=== PATIENT | male | born 1950 | race Caucasian/White ===

== ENCOUNTER 2020-02-25 10:38 | Observation (INO) | payer MEDICARE, BC ==
[2020-02-25] MEDS ORDERED: HYDROmorphone 2 MG/ML SDV IVPUSH ONE (11:15)
[2020-02-25] MEDS ORDERED: Ondansetron 4 MG/2 ML SDV IVPUSH ONE (11:15)
[2020-02-25] MEDS: Sodium Chloride 0.9% 10 ML Syringe FLUSH PRN ×3 (11:21→19:41)
--- NOTE | 2020-02-25 11:23 | EDM.PDOC ---
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, leaned to far and thinks he inadvertently kicked the ladder out from under him, fell 6', landed on the ladder, no LOC, his boss was in the basement and came up to check on him, lay there for 10 minutes, then was up and walking he drove part way to his daughter's house, who then drove him here no CABRERA, no neck pain, no abd pain, had mid in midsternum and R wrist, L handed has had rib fx's in past, thinks he may have fx'ed a rib no cough, no dyspnea, no tachypnea fully alert and cooperative trauma alert called, I notified Dr Del Cid after doing examining pt including an eFAST u/s that was neg, Dr Del Cid requested to be notified if there is a change in pt's condition, pt currently clinically stable ~1.5h after injury with normal vs pt did reluctantly agree to take pain meds h/o prostate and heart problems PCP in [place], from [facility] not seen at this location previously, no other data in [facility] meds: ASA 81/d, atenolol, lisinopril, prostate med, cholesterol med PMH: states he had a stent x 1 20y ago, no DC, last stress test was awhile ago right wrist, chest, abdomen Pain Score (Numeric/FACES): 5 - Related Data Allergies Allergy/AdvReac Type Severity Reaction Status Date / Time No Known Allergies Allergy Verified 02/25/20 11:00 Past Medical History HEENT History: Reports: Impaired Vision Cardiovascular History: Reports: High Cholesterol, Hypertension, Other (See Below) Other Cardiovascular History: stent placed in 1999 Genitourinary History: Reports: Prostate Disorder Musculoskeletal History: Reports: Fracture, Other (See Below) Other Musculoskeletal History: fractured ribs Psychiatric History: Reports: Depression - Past Surgical History Musculoskeletal Surgical History: Reports: Hip Replacement, Other (See Below) Other Musculoskeletal Surgeries/Procedures:: right hip replacement Social & Family History - Family History Family Medical History: Noncontributory Review of Systems - Review of Systems Review Of Systems: See Below Constitutional: Reports: No Symptoms Eyes: Reports: No Symptoms Ears: Reports: No Symptoms Nose: Reports: No Symptoms Mouth/Throat: Reports: No Symptoms Respiratory: Reports: No Symptoms Cardiovascular: Reports: Chest Pain GI/Abdominal: Reports: No Symptoms. Denies: Abdominal Pain Genitourinary: Reports: No Symptoms Musculoskeletal: Reports: No Symptoms Skin: Reports: No Symptoms Neurological: Reports: No Symptoms Psychiatric: Reports: No Symptoms ED EXAM, GENERAL - Physical Exam Exam: See Below Exam Limited By: No Limitations General Appearance: Alert, WD/WN, No Apparent Distress, Other (good eye contact, GCS 15, normal speech, cognition intact, no dyspnea) Eye Exam: Bilateral Eye: EOMI, PERRL Ears: Normal Canal, Hearing Grossly Normal Neck: Normal Inspection, Supple, Non-Tender, Full Range of Motion. No: Lymphadenopathy (R), Lymphadenopathy (L) Respiratory/Chest: Other (abrasion in mid sternum of ~ 10 x 10 cm, superficial, no lac, no bleeding, no ecchymosis, no splinting, 1-2+ tender at lower 1/2 of sternum and R lower hemithorax, 1+ tender at L lower hemithorax, no cough, no accessory muscles, symmetric BS a little more prominent on L, no visible pneumo on u/s) Cardiovascular: Normal Peripheral Pulses, Regular Rate, Rhythm, No Edema, No Gallop, No JVD, No Murmur, No Rub GI/Abdominal: Normal Bowel Sounds, Soft, Other (abraion ~5 x 5 cm at RUQ in MCL, superficial, no lac, no bleeding, prominent abd c/w inc'd adipose tissue, no definite tenderness) Extremities: No Pedal Edema, Other (R wrist with skin intact, no swell, no def ormity, ) Neurological: Alert, Oriented, CN II-XII Intact, Normal Cognition, No Motor/Sensory Deficits Psychiatric: Normal Affect, Normal Mood Skin Exam: Warm, Dry, Intact, Normal Color, No Rash Lymphatic: No Adenopathy Course - Vital Signs Last Recorded V/S: Last Vital Signs Temp 37.1 C 02/25/20 10:40 Pulse 57 L 02/25/20 11:06 Resp 14 02/25/20 11:06 BP 164/82 H 02/25/20 11:06 Pulse Ox 99 02/25/20 11:06 - Orders/Labs/Meds Orders: Active Orders 24 hr Category Date Time Status EKG Documentation Completion [RC] ASDIRECTED Care 02/25/20 11:17 Ordered Chest Abdomen Pelvis w Cont [CT] Stat Exams 02/25/20 11:09 Ordered Wrist Comp Min 3V Rt [CR] Stat Exams 02/25/20 11:11 Ordered Sodium Chloride 0.9% [Normal Saline] 1,000 ml Med 02/25/20 11:30 Active IV ASDIRECTED Sodium Chloride 0.9% [Saline Flush] Med 02/25/20 11:21 Active 10 ml FLUSH ASDIRECTED PRN EKG 12 Lead [EK] Routine Ther 02/25/20 11:16 Ordered Medication Orders Sodium Chloride (Normal Saline) 1,000 mls @ 999 mls/hr IV ASDIRECTED BULL Last Admin: 02/25/20 11:28 Dose: 999 mls/hr Documented by: JULISSA Sodium Chloride (Saline Flush) 10 ml FLUSH ASDIRECTED PRN PRN Reason: Keep Vein Open Last Admin: 02/25/20 11:21 Dose: 10 ml Documented by: JULISSA Labs: Laboratory Tests 02/25/20 02/25/20 02/25/20 Range/Units 11:40 11:40 11:40 WBC 6.8 (4.5-12.0) X10-3/uL RBC 4.39 (4.30-5.75) x10(6)uL Hgb 13.2 L (13.5-17.8) g/dL Hct 39.6 (30.0-51.3) % MCV 90.2 (80-96) fL MCH 30.1 (27.7-33.6) pg MCHC 33.4 (32.2-35.4) g/dL RDW 13.7 (11.5-15.5) % Plt Count 150 (125-369) X10(3)uL MPV 7.1 L (7.4-10.4) fL Neut % (Auto) 81.1 (46-82) % Lymph % (Auto) 10.0 L (13-37) % [place] % (Auto) 7.5 (4-12) % Eos % (Auto) 0 L (1.0-5.0) % Baso % (Auto) 1 (0-2) % Neut # (Auto) 5.4 (1.6-8.3) # Lymph # (Auto) 0.7 (0.6-5.0) # [place] # (Auto) 0.5 (0.0-1.3) # Eos # (Auto) 0.0 (0.0-0.8) # Baso # (Auto) 0.1 (0.0-0.2) # PT (9.0-11.1) sec INR (1.00-1.24) Sodium 139 (135-145) mmol/L Potassium 4.3 (3.5-5.3) mmol/L Chloride 107 (100-110) mmol/L Carbon Dioxide 26 (21-32) mmol/L BUN 16 (7-18) mg/dL Creatinine 1.2 (0.70-1.30) mg/dL Est Cr Clr Drug Dosing TNP Estimated GFR (MDRD) > 60 (>60) BUN/Creatinine Ratio 13.3 (9-20) Glucose 107 (80-116) mg/dL Calcium 8.6 (8.6-10.2) mg/dL Total Bilirubin 0.8 (0.1-1.3) mg/dL AST 38 H (5-25) IU/L ALT 35 (12-36) U/L Alkaline Phosphatase 78 (56-112) IU/L Troponin I 5.7 (4.0-60.3) pg/mL Total Protein 6.3 (6.0-8.0) g/dL Albumin 3.5 (3.2-4.6) g/dL Globulin 2.8 g/dL Albumin/Globulin Ratio 1.3 Urine Color (YELLOW) Urine Appearance (CLEAR) Urine pH (5.0-6.5) Ur Specific [place] (1.010-1.025) Urine Protein (NEGATIVE) mg/dL Urine Glucose (UA) (NORMAL) mg/dL Urine Ketones (NEGATIVE) mg/dL Urine Occult Blood (NEGATIVE) Urine Nitrite (NEGATIVE) Urine Bilirubin (NEGATIVE) Urine Urobilinogen (NEGATIVE) mg/dL Ur Leukocyte Esterase (NEGATIVE) Urine RBC (0-5) Urine WBC (0-5) Ur Squamous Epith Cells (NS,R,O) Urine Bacteria (NS) Fine Granular Casts (NS) 02/25/20 02/25/20 Range/Units 11:40 12:56 WBC (4.5-12.0) X10-3/uL RBC (4.30-5.75) x10(6)uL Hgb (13.5-17.8) g/dL Hct (30.0-51.3) % MCV (80-96) fL MCH (27.7-33.6) pg MCHC (32.2-35.4) g/dL RDW (11.5-15.5) % Plt Count (125-369) X10(3)uL MPV (7.4-10.4) fL Neut % (Auto) (46-82) % Lymph % (Auto) (13-37) % [place] % (Auto) (4-12) % Eos % (Auto) (1.0-5.0) % Baso % (Auto) (0-2) % Neut # (Auto) (1.6-8.3) # Lymph # (Auto) (0.6-5.0) # [place] # (Auto) (0.0-1.3) # Eos # (Auto) (0.0-0.8) # Baso # (Auto) (0.0-0.2) # PT 13.0 H (9.0-11.1) sec INR 1.22 (1.00-1.24) Sodium (135-145) mmol/L Potassium (3.5-5.3) mmol/L Chloride (100-110) mmol/L Carbon Dioxide (21-32) mmol/L BUN (7-18) mg/dL Creatinine (0.70-1.30) mg/dL Est Cr Clr Drug Dosing Estimated GFR (MDRD) (>60) BUN/Creatinine Ratio (9-20) Glucose (80-116) mg/dL Calcium (8.6-10.2) mg/dL Total Bilirubin (0.1-1.3) mg/dL AST (5-25) IU/L ALT (12-36) U/L Alkaline Phosphatase (56-112) IU/L Troponin I (4.0-60.3) pg/mL Total Protein (6.0-8.0) g/dL Albumin (3.2-4.6) g/dL Globulin g/dL Albumin/Globulin Ratio Urine Color Yellow (YELLOW) Urine Appearance Clear (CLEAR) Urine pH 5.0 (5.0-6.5) Ur Specific [place] 1.010 (1.010-1.025) Urine Protein Negative (NEGATIVE) mg/dL Urine Glucose (UA) Normal (NORMAL) mg/dL Urine Ketones Negative (NEGATIVE) mg/dL Urine Occult Blood Moderate H (NEGATIVE) Urine Nitrite Negative (NEGATIVE) Urine Bilirubin Negative (NEGATIVE) Urine Urobilinogen Normal (NEGATIVE) mg/dL Ur Leukocyte Esterase Negative (NEGATIVE) Urine RBC 20-30 H (0-5) Urine WBC 0-5 (0-5) Ur Squamous Epith Cells Moderate H (NS,R,O) Urine Bacteria Few H (NS) Fine Granular Casts Few H (NS) Meds: Medications Generic Name Dose Route Start Last Admin Trade Name Freq PRN Reason Stop Dose Admin Sodium Chloride 1,000 mls @ 999 mls/hr 02/25/20 11:30 02/25/20 11:28 Normal Saline IV 999 mls/hr ASDIRECTED BULL Administration Sodium Chloride 10 ml 02/25/20 11:21 02/25/20 11:21 Saline Flush FLUSH 10 ml ASDIRECTED PRN Administration Keep Vein Open Discontinued Medications Generic Name Dose Route Start Last Admin Trade Name Freq PRN Reason Stop Dose Admin Hydromorphone HCl 1 mg 02/25/20 11:15 02/25/20 11:24 Dilaudid IVPUSH 02/25/20 11:16 1 mg ONETIME ONE Administration Ondansetron HCl 4 mg 02/25/20 11:15 02/25/20 11:20 Zofran IVPUSH 02/25/20 11:16 4 mg ONETIME ONE Administration - Re-Assessments/Exams Free Text/Narrative Re-Assessment/Exam: 02/25/20 13:48 d/w radiologist, there is a Grade 1 splenic rupture, no rib fx's d/w Dr Del Cid, surgeon, who agreed that overnight observation was reasonable given mild anemia (hgb 13.5, no comparison), elevated INR (INR 1.22), chest contusion in pt with h/o cardiac stent, and splenic rupture vss here 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 as well as for additional signs of hemorrhage d/w Dr Mckenna, hospitalist, who accepted pt in admission there is a nondisplaced fx of the distal R radius that involves ~15% of the articular service, appears it should heal with a splint, short arm splint applied with stockinet, webroll, padded fiberglass and Junior wraps x 2 (3" and 2"), pt states he will f/u with [facility], images pushed to [facility] 02/25/20 13:52 Departure - Departure Time of Disposition: 13:45 Disposition: Refer to Observation Condition: Good Clinical Impression: Chest wall contusion, Chest abrasion, Splenic rupture, Normochromic normocytic anemia, Elevated INR, Hx of heart artery stent, Fall, Fracture of right distal radius - Discharge Information *PRESCRIPTION DRUG MONITORING PROGRAM REVIEWED*: Not Applicable *COPY OF PRESCRIPTION DRUG MONITORING REPORT IN PATIENT RONAK: Not Applicable Referrals: Kathleen Degroot MD [Primary Care Provider] - Forms: ED Department Discharge Sepsis Event Note (ED) - Evaluation Sepsis Screening Result: No Definite Risk - Focused Exam Vital Signs: Vital Signs Temp Pulse Resp BP Pulse Ox 02/25/20 11:06 57 L 14 164/82 H 99 02/25/20 10:40 37.1 C 57 L 12 157/87 H - My Orders Last 24 Hours: My Active Orders 02/25/20 11:09 Chest Abdomen Pelvis w Cont [CT] Stat 02/25/20 11:11 Wrist Comp Min 3V Rt [CR] Stat 02/25/20 11:16 EKG 12 Lead [EK] Routine 02/25/20 11:17 EKG Documentation Completion [RC] ASDIRECTED 02/25/20 11:21 Sodium Chloride 0.9% [Saline Flush] 10 ml FLUSH ASDIRECTED PRN 02/25/20 11:30 Sodium Chloride 0.9% [Normal Saline] 1,000 ml IV ASDIRECTED - Assessment/Plan Last 24 Hours: My Active Orders 02/25/20 11:09 Chest Abdomen Pelvis w Cont [CT] Stat 02/25/20 11:11 Wrist Comp Min 3V Rt [CR] Stat 02/25/20 11:16 EKG 12 Lead [EK] Routine 02/25/20 11:17 EKG Documentation Completion [RC] ASDIRECTED 02/25/20 11:21 Sodium Chloride 0.9% [Saline Flush] 10 ml FLUSH ASDIRECTED PRN 02/25/20 11:30 Sodium Chloride 0.9% [Normal Saline] 1,000 ml IV ASDIRECTED
[2020-02-25] MEDS ORDERED: Sodium Chloride 0.9% 1,000 ML IV SCH (11:30)
--- NOTE | 2020-02-25 14:28 | PCM.HP.2 ---
H&P History of Present Illness - General Date of Service: 02/25/20 Admit Problem/Dx: Grade 1 splenic rupture, Right distal radial fracture, fall from ladder, chest abrasion with contusion Source of Information: Patient, EMS Notes Reviewed, Provider - History of Present Illness Initial Comments - Free Text/Narative: Arun was working today on ladder, reached forward and ladder went out from underneath him, fell 6 feet, landed on either ladder or some bricks that were under the ladder, did not lose consciousness, had reached out with his right hand to catch himself. His boss found him about 10 min after injury, went home and daughter brought him to ER. Had trauma CT, found to have grade 1 splenic fracture, right distal radial fracture, chest contusion, chest abrasion, hemoglobin 13.2, INR is within normal range for our lab. History of CAD with stent x 1 placed in 1999, on Atenolol 50 mg, Lisinopril 10 mg, Aspirin 81 mg, Atorvastatin 40 mg, Terazosin 5 mg, Fish oil supplement and was started on new depression medication, but doesn't remember name. His daughter is bringing his medications in from home. He states he is sore, no abdominal pain, fevers, chills, sore throat, cough, shortness of breath, nausea, vomiting, diarrhea. No trouble urinating. Having some numbness in right thumb, splint starting to feel tight. No injuries to his legs. His regular doctor is at [facility] in [facility]. Took all his medications this morning. right wrist, chest, abdomen Pain Score (Numeric/FACES): 5 - Related Data Allergies/Adverse Reactions: Allergies Allergy/AdvReac Type Severity Reaction Status Date / Time No Known Allergies Allergy Verified 02/25/20 11:00 Past Medical History HEENT History: Reports: Impaired Vision Cardiovascular History: Reports: High Cholesterol, Hypertension, Other (See Below) Other Cardiovascular History: stent placed in 1999 Genitourinary History: Reports: Prostate Disorder Musculoskeletal History: Reports: Fracture, Other (See Below) Other Musculoskeletal History: fractured ribs Psychiatric History: Reports: Depression - Past Surgical History Musculoskeletal Surgical History: Reports: Hip Replacement, Other (See Below) Other Musculoskeletal Surgeries/Procedures:: right hip replacement Social & Family History - Family History Family Medical History: Noncontributory - Tobacco Use Smoking Status *Q: Former Smoker Used Tobacco, but Quit: Yes Month/Year Tobacco Last Used: 07/2009 - Caffeine Use Caffeine Use: Reports: Coffee - Alcohol Use Days Per Week of Alcohol Use: 7 Number of Drinks Per Day: 3 Total Drinks Per Week: 21 - Recreational Drug Use Recreational Drug Use: No H&P Review of Systems - Review of Systems: Review Of Systems: Comprehensive ROS is negative, except as noted in HPI. Exam - Exam Exam: See Below - Vital Signs Vital Signs: Last Vital Signs Temp 98.7 F 02/25/20 10:40 Pulse 57 L 02/25/20 11:06 Resp 14 02/25/20 11:06 BP 164/82 H 02/25/20 11:06 Pulse Ox 99 02/25/20 11:06 Weight: 175 lb - Exam General: Alert, Oriented, Cooperative. No: Mild Distress HEENT: PERRLA, Conjunctiva Clear, Hearing Intact, Mucosa Moist & [place], TMs Clear, Glasses Neck: Supple, Trachea Midline Lungs: Clear to Auscultation, Normal Respiratory Effort, Decreased Breath Sounds (bibasilar) Cardiovascular: Regular Rate, Regular Rhythm GI/Abdominal Exam: Normal Bowel Sounds, Soft, Non-Tender, No Distention. No: Guarding, Rigid, Rebound (Male) Exam: Deferred Rectal (Males) Exam: Deferred Back Exam: No: CVA Tenderness (R), CVA Tenderness (L) Extremities: No Pedal Edema. No: Joint Swelling, Leg Pain, Increased Warmth, Redness Peripheral Pulses: 2+: Radial (L), Posterior Tibial (L), Posterior Tibial (R), Dorsalis Pedis (L), Dorsalis Pedis (R) Skin: Warm, Dry, Other (Abrasion to sternum 5 cm x 3 cm, epigastric 3 cm) Neurological: Cranial Nerves Intact, Normal Speech Psychiatric: Normal Affect, Normal Mood - Patient Data Lab Results Last 24 hrs: Laboratory Results - last 24 hr 02/25/20 02/25/20 02/25/20 Range/Units 11:40 11:40 11:40 WBC 6.8 (4.5-12.0) X10-3/uL RBC 4.39 (4.30-5.75) x10(6)uL Hgb 13.2 L (13.5-17.8) g/dL Hct 39.6 (30.0-51.3) % MCV 90.2 (80-96) fL MCH 30.1 (27.7-33.6) pg MCHC 33.4 (32.2-35.4) g/dL RDW 13.7 (11.5-15.5) % Plt Count 150 (125-369) X10(3)uL MPV 7.1 L (7.4-10.4) fL Neut % (Auto) 81.1 (46-82) % Lymph % (Auto) 10.0 L (13-37) % [place] % (Auto) 7.5 (4-12) % Eos % (Auto) 0 L (1.0-5.0) % Baso % (Auto) 1 (0-2) % Neut # (Auto) 5.4 (1.6-8.3) # Lymph # (Auto) 0.7 (0.6-5.0) # [place] # (Auto) 0.5 (0.0-1.3) # Eos # (Auto) 0.0 (0.0-0.8) # Baso # (Auto) 0.1 (0.0-0.2) # PT (9.0-11.1) sec INR (1.00-1.24) Sodium 139 (135-145) mmol/L Potassium 4.3 (3.5-5.3) mmol/L Chloride 107 (100-110) mmol/L Carbon Dioxide 26 (21-32) mmol/L BUN 16 (7-18) mg/dL Creatinine 1.2 (0.70-1.30) mg/dL Est Cr Clr Drug Dosing TNP Estimated GFR (MDRD) > 60 (>60) BUN/Creatinine Ratio 13.3 (9-20) Glucose 107 (80-116) mg/dL Calcium 8.6 (8.6-10.2) mg/dL Total Bilirubin 0.8 (0.1-1.3) mg/dL AST 38 H (5-25) IU/L ALT 35 (12-36) U/L Alkaline Phosphatase 78 (56-112) IU/L Troponin I 5.7 (4.0-60.3) pg/mL Total Protein 6.3 (6.0-8.0) g/dL Albumin 3.5 (3.2-4.6) g/dL Globulin 2.8 g/dL Albumin/Globulin Ratio 1.3 Urine Color (YELLOW) Urine Appearance (CLEAR) Urine pH (5.0-6.5) Ur Specific [place] (1.010-1.025) Urine Protein (NEGATIVE) mg/dL Urine Glucose (UA) (NORMAL) mg/dL Urine Ketones (NEGATIVE) mg/dL Urine Occult Blood (NEGATIVE) Urine Nitrite (NEGATIVE) Urine Bilirubin (NEGATIVE) Urine Urobilinogen (NEGATIVE) mg/dL Ur Leukocyte Esterase (NEGATIVE) Urine RBC (0-5) Urine WBC (0-5) Ur Squamous Epith Cells (NS,R,O) Urine Bacteria (NS) Fine Granular Casts (NS) 02/25/20 02/25/20 Range/Units 11:40 12:56 WBC (4.5-12.0) X10-3/uL RBC (4.30-5.75) x10(6)uL Hgb (13.5-17.8) g/dL Hct (30.0-51.3) % MCV (80-96) fL MCH (27.7-33.6) pg MCHC (32.2-35.4) g/dL RDW (11.5-15.5) % Plt Count (125-369) X10(3)uL MPV (7.4-10.4) fL Neut % (Auto) (46-82) % Lymph % (Auto) (13-37) % [place] % (Auto) (4-12) % Eos % (Auto) (1.0-5.0) % Baso % (Auto) (0-2) % Neut # (Auto) (1.6-8.3) # Lymph # (Auto) (0.6-5.0) # [place] # (Auto) (0.0-1.3) # Eos # (Auto) (0.0-0.8) # Baso # (Auto) (0.0-0.2) # PT 13.0 H (9.0-11.1) sec INR 1.22 (1.00-1.24) Sodium (135-145) mmol/L Potassium (3.5-5.3) mmol/L Chloride (100-110) mmol/L Carbon Dioxide (21-32) mmol/L BUN (7-18) mg/dL Creatinine (0.70-1.30) mg/dL Est Cr Clr Drug Dosing Estimated GFR (MDRD) (>60) BUN/Creatinine Ratio (9-20) Glucose (80-116) mg/dL Calcium (8.6-10.2) mg/dL Total Bilirubin (0.1-1.3) mg/dL AST (5-25) IU/L ALT (12-36) U/L Alkaline Phosphatase (56-112) IU/L Troponin I (4.0-60.3) pg/mL Total Protein (6.0-8.0) g/dL Albumin (3.2-4.6) g/dL Globulin g/dL Albumin/Globulin Ratio Urine Color Yellow (YELLOW) Urine Appearance Clear (CLEAR) Urine pH 5.0 (5.0-6.5) Ur Specific [place] 1.010 (1.010-1.025) Urine Protein Negative (NEGATIVE) mg/dL Urine Glucose (UA) Normal (NORMAL) mg/dL Urine Ketones Negative (NEGATIVE) mg/dL Urine Occult Blood Moderate H (NEGATIVE) Urine Nitrite Negative (NEGATIVE) Urine Bilirubin Negative (NEGATIVE) Urine Urobilinogen Normal (NEGATIVE) mg/dL Ur Leukocyte Esterase Negative (NEGATIVE) Urine RBC 20-30 H (0-5) Urine WBC 0-5 (0-5) Ur Squamous Epith Cells Moderate H (NS,R,O) Urine Bacteria Few H (NS) Fine Granular Casts Few H (NS) Result Diagrams: 02/25/20 11:40 02/25/20 11:40 Sepsis Event Note - Evaluation Sepsis Screening Result: No Definite Risk - Focused Exam Vital Signs: Vital Signs Temp Pulse Resp BP Pulse Ox 02/25/20 11:06 57 L 14 164/82 H 99 02/25/20 10:40 98.7 F 57 L 12 157/87 H Date Exam was Performed: 02/25/20 Time Exam was Performed: 14:50 *Q Meaningful Use (ADM) - VTE *Q VTE Pharmacological Contraindications *Q: Active Hemorrhage - VTE Risk Assess *Q Each Risk Factor Represents 2 Points: Age 60 - 74 Years Total Score 2 Point Risk Factors: 2 - Problem List (1) Splenic rupture SNOMED Code(s): 579994189 ICD Code: S36.09XA - OTHER INJURY OF SPLEEN, INITIAL ENCOUNTER Status: Acute Current Visit: Yes Onset Date: ~02/25/20 Problem Details: Grade 1, Dr Del Cid was consulted by ER, advised observation. Will consult if needed. (2) Normochromic normocytic anemia SNOMED Code(s): 88830181 ICD Code: D64.9 - ANEMIA, UNSPECIFIED Status: Acute Current Visit: Yes (3) Fracture of right distal radius SNOMED Code(s): 669295746 ICD Code: S52.501A - UNSP FRACTURE OF THE LOWER END OF RIGHT RADIUS, INIT Status: Acute Current Visit: Yes Onset Date: ~02/25/20 Qualifiers: Encounter type: initial encounter Fracture type: closed (4) Fall SNOMED Code(s): 8856292, 104486747 ICD Code: W19.XXXA - UNSPECIFIED FALL, INITIAL ENCOUNTER Status: Acute Current Visit: Yes Onset Date: ~02/25/20 (5) Chest abrasion SNOMED Code(s): 896858867 ICD Code: S20.319A - ABRASION OF UNSPECIFIED FRONT WALL OF THORAX, INIT ENCNTR Status: Acute Current Visit: Yes Onset Date: ~02/25/20 (6) Chest wall contusion SNOMED Code(s): 42223138 ICD Code: S20.219A - CONTUSION OF UNSPECIFIED FRONT WALL OF THORAX, INIT ENCNTR Status: Acute Current Visit: Yes Onset Date: ~02/25/20 (7) Hx of heart artery stent SNOMED Code(s): 558057793, 873533404 ICD Code: Z95.5 - PRESENCE OF CORONARY ANGIOPLASTY IMPLANT AND GRAFT Status: Chronic Current Visit: Yes Onset Date: ~1999 (8) Elevated INR SNOMED Code(s): 283108122 ICD Code: R79.1 - ABNORMAL COAGULATION PROFILE Status: Ruled-out Current Visit: Yes Problem List Initiated/Reviewed/Updated: Yes Orders Last 24hrs: Active Orders 24 hr Category Date Time Status EKG Documentation Completion [RC] ASDIRECTED Care 02/25/20 11:17 Active Chest Abdomen Pelvis w Cont [CT] Stat Exams 02/25/20 11:09 Taken Wrist Comp Min 3V Rt [CR] Stat Exams 02/25/20 11:11 Taken Sodium Chloride 0.9% [Normal Saline] 1,000 ml Med 02/25/20 11:30 Active IV ASDIRECTED Sodium Chloride 0.9% [Saline Flush] Med 02/25/20 11:21 Active 10 ml FLUSH ASDIRECTED PRN EKG 12 Lead [EK] Routine Ther 02/25/20 11:16 Ordered Medication Orders Sodium Chloride (Normal Saline) 1,000 mls @ 999 mls/hr IV ASDIRECTED BULL Last Admin: 02/25/20 11:28 Dose: 999 mls/hr Documented by: JULISSA Sodium Chloride (Saline Flush) 10 ml FLUSH ASDIRECTED PRN PRN Reason: Keep Vein Open Last Admin: 02/25/20 11:21 Dose: 10 ml Documented by: JULISSA Assessment/Plan Comment:: 1. Admit for observation for grade 1 splenic rupture, right distal radial fracture, chest contusion, Mild anemia. 2. Cardiac monitoring, repeat CBC & BMP in am. 3. INR is within our lab range, no alcohol use. 4. Tylenol, Hydrocodone/APAP and Morphine as needed mild, moderate & severe pain. 5. Zofran as needed nausea. 6. Regular diet. 7. DVT prophylaxis: TEDs BLE, pharmacologic contraindicated due to splenic rupture. 8. FULL CODE. 9. Will adjust treatments as needed. - Mortality Measure Prognosis:: Good
[2020-02-25] MEDS ORDERED: Ondansetron 4 MG Tab.DIS PO PRN (14:45)
[2020-02-25] MEDS ORDERED: Ibuprofen 200 MG Tab PO SCH (15:00)
[2020-02-25] MEDS: Acetaminophen 500 MG Tab PO SCH ×2 (15:21→22:28)
[2020-02-25] MEDS: Acetaminophen/HYDROcodone 325-5 MG Tab PO PRN ×3 (15:21→23:35)
[2020-02-25] MEDS: Morphine 2 MG/ML SYRINGE IVPUSH PRN ×3 (15:24→22:36)
[2020-02-25] MEDS ORDERED: Iopamidol 755 Mg/ML 100 ML Bottle IV ONE (20:06)
--- NOTE | 2020-02-25 21:27 | PCM.SN.2 ---
- Free Text/Narrative Note: hgb down 0.8 points after 1 liter NS repeat EKG neg 2nd trop neg CK inc'd 2.5x ULN, will give additional fluids may need additional imaging if hgb continues to drop, repeat CBC scheduled in AM
[2020-02-25] MEDS: Dextrose 5%-0.45% NaCl 1,000 ML IV SCH (21:51)
[2020-02-26] MEDS: Acetaminophen/HYDROcodone 325-5 MG Tab PO PRN ×4 (03:43→20:23)
[2020-02-26] MEDS: Acetaminophen 500 MG Tab PO SCH ×2 (03:43→08:56)
[2020-02-26] MEDS: Docusate Sodium 100 MG Cap PO PRN ×2 (03:47→20:23)
[2020-02-26] MEDS: Morphine 2 MG/ML SYRINGE IVPUSH PRN ×3 (04:05→15:10)
[2020-02-26] MEDS: Dextrose 5%-0.45% NaCl 1,000 ML IV SCH (05:48)
[2020-02-26] MEDS: Polyethylene Glycol 3350 Powder 17 GM Packet PO PRN (08:52)
[2020-02-26] MEDS: Sodium Chloride 0.9% 10 ML Syringe FLUSH PRN ×3 (10:00→15:21)
[2020-02-26] MEDS ORDERED: Iopamidol 755 Mg/ML 100 ML Bottle IV ONE (13:41)
--- NOTE | 2020-02-26 13:51 | PCM.PN ---
- General Info Date of Service: 02/26/20 Subjective Update: Arun had worsening pain overnight, see Dr Buck note, has been requiring Morphine & [place] 1 tab to control pain every 4 hours. No fevers. Feels sore this morning. EKG and troponin negative but CPK was elevated at 413, repeated at noon at 341. IVF were started last night due to the elevated CPK, he tolerated his breakfast and dinner without worsening of symptoms. Having sharp pain in his RLQ, worse when he stands up. Functional Status: Reports: Pain Controlled, Tolerating Diet, Ambulating, Urinating, New Symptoms - Patient Data Vitals - Most Recent: Last Vital Signs Temp 98.1 F 02/26/20 07:30 Pulse 62 02/26/20 07:30 Resp 18 02/26/20 07:30 BP 151/77 H 02/26/20 07:30 Pulse Ox 94 L 02/26/20 07:30 Weight - Most Recent: 175 lb I&O - Last 24 Hours: Intake & Output 02/25/20 02/26/20 02/26/20 22:59 06:59 14:59 Intake Total 500 Balance 500 Lab Results Last 24 Hours: Laboratory Results - last 24 hr 02/25/20 02/25/20 02/25/20 Range/Units 20:10 20:10 20:10 WBC 5.8 (4.5-12.0) X10-3/uL RBC 4.04 L (4.30-5.75) x10(6)uL Hgb 12.4 L (13.5-17.8) g/dL Hct 36.5 (30.0-51.3) % MCV 90.2 (80-96) fL MCH 30.6 (27.7-33.6) pg MCHC 33.9 (32.2-35.4) g/dL RDW 13.8 (11.5-15.5) % Plt Count 157 (125-369) X10(3)uL Sodium (135-145) mmol/L Potassium (3.5-5.3) mmol/L Chloride (100-110) mmol/L Carbon Dioxide (21-32) mmol/L BUN (7-18) mg/dL Creatinine (0.70-1.30) mg/dL Est Cr Clr Drug Dosing mL/min Estimated GFR (MDRD) (>60) BUN/Creatinine Ratio (9-20) Glucose (80-116) mg/dL Calcium (8.6-10.2) mg/dL Creatine Kinase 413 H* (60-160) IU/L Troponin I 6.0 (4.0-60.3) pg/mL Urine Color (YELLOW) Urine Appearance (CLEAR) Urine pH (5.0-6.5) Ur Specific [place] (1.010-1.025) Urine Protein (NEGATIVE) mg/dL Urine Glucose (UA) (NORMAL) mg/dL Urine Ketones (NEGATIVE) mg/dL Urine Occult Blood (NEGATIVE) Urine Nitrite (NEGATIVE) Urine Bilirubin (NEGATIVE) Urine Urobilinogen (NEGATIVE) mg/dL Ur Leukocyte Esterase (NEGATIVE) Urine RBC (0-5) Urine WBC (0-5) Ur Squamous Epith Cells (NS,R,O) Urine Bacteria (NS) 02/26/20 02/26/20 02/26/20 Range/Units 06:45 06:45 07:50 WBC 5.5 (4.5-12.0) X10-3/uL RBC 3.94 L (4.30-5.75) x10(6)uL Hgb 11.9 L (13.5-17.8) g/dL Hct 35.9 (30.0-51.3) % MCV 91.1 (80-96) fL MCH 30.2 (27.7-33.6) pg MCHC 33.1 (32.2-35.4) g/dL RDW 13.5 (11.5-15.5) % Plt Count 131 (125-369) X10(3)uL Sodium 136 (135-145) mmol/L Potassium 4.0 (3.5-5.3) mmol/L Chloride 102 D (100-110) mmol/L Carbon Dioxide 27 (21-32) mmol/L BUN 12 (7-18) mg/dL Creatinine 1.1 (0.70-1.30) mg/dL Est Cr Clr Drug Dosing 63.05 mL/min Estimated GFR (MDRD) > 60 (>60) BUN/Creatinine Ratio 10.9 (9-20) Glucose 126 H (80-116) mg/dL Calcium 7.8 L (8.6-10.2) mg/dL Creatine Kinase (60-160) IU/L Troponin I (4.0-60.3) pg/mL Urine Color Yellow (YELLOW) Urine Appearance Clear (CLEAR) Urine pH 5.0 (5.0-6.5) Ur Specific [place] 1.020 (1.010-1.025) Urine Protein Negative (NEGATIVE) mg/dL Urine Glucose (UA) Normal (NORMAL) mg/dL Urine Ketones Negative (NEGATIVE) mg/dL Urine Occult Blood Negative (NEGATIVE) Urine Nitrite Negative (NEGATIVE) Urine Bilirubin Negative (NEGATIVE) Urine Urobilinogen Normal (NEGATIVE) mg/dL Ur Leukocyte Esterase Negative (NEGATIVE) Urine RBC 10-20 H (0-5) Urine WBC 0-5 (0-5) Ur Squamous Epith Cells Few H (NS,R,O) Urine Bacteria Few H (NS) 02/26/20 02/26/20 Range/Units 12:05 12:05 WBC (4.5-12.0) X10-3/uL RBC (4.30-5.75) x10(6)uL Hgb 12.8 L (13.5-17.8) g/dL Hct 38.4 (30.0-51.3) % MCV (80-96) fL MCH (27.7-33.6) pg MCHC (32.2-35.4) g/dL RDW (11.5-15.5) % Plt Count (125-369) X10(3)uL Sodium (135-145) mmol/L Potassium (3.5-5.3) mmol/L Chloride (100-110) mmol/L Carbon Dioxide (21-32) mmol/L BUN (7-18) mg/dL Creatinine (0.70-1.30) mg/dL Est Cr Clr Drug Dosing mL/min Estimated GFR (MDRD) (>60) BUN/Creatinine Ratio (9-20) Glucose (80-116) mg/dL Calcium (8.6-10.2) mg/dL Creatine Kinase 341 H* (60-160) IU/L Troponin I (4.0-60.3) pg/mL Urine Color (YELLOW) Urine Appearance (CLEAR) Urine pH (5.0-6.5) Ur Specific [place] (1.010-1.025) Urine Protein (NEGATIVE) mg/dL Urine Glucose (UA) (NORMAL) mg/dL Urine Ketones (NEGATIVE) mg/dL Urine Occult Blood (NEGATIVE) Urine Nitrite (NEGATIVE) Urine Bilirubin (NEGATIVE) Urine Urobilinogen (NEGATIVE) mg/dL Ur Leukocyte Esterase (NEGATIVE) Urine RBC (0-5) Urine WBC (0-5) Ur Squamous Epith Cells (NS,R,O) Urine Bacteria (NS) Med Orders - Current: Current Medications Hydrocodone Bitart/Acetaminophen ([place] 325-5 Mg) 2 tab PO Q4H PRN PRN Reason: Pain (moderate 4-6) Docusate Sodium (Colace) 100 mg PO BID PRN PRN Reason: Constipation Last Admin: 02/26/20 03:47 Dose: 100 mg Documented by: Iopamidol (Isovue-370 (76%)) 100 ml IV . DIRECTED ONE Stop: 02/26/20 13:42 Morphine Sulfate (Morphine) 2 mg IVPUSH Q2H PRN PRN Reason: Pain (severe 7-10) Last Admin: 02/26/20 08:49 Dose: 2 mg Documented by: Ondansetron HCl (Zofran Odt) 4 mg PO Q4H PRN PRN Reason: nausea, able to take PO Polyethylene Glycol (Miralax) 17 gm PO DAILY PRN PRN Reason: Constipation Last Admin: 02/26/20 08:52 Dose: 17 gm Documented by: Sodium Chloride (Saline Flush) 10 ml FLUSH ASDIRECTED PRN PRN Reason: Keep Vein Open Last Admin: 02/25/20 19:41 Dose: 10 ml Documented by: Discontinued Medications Acetaminophen (Tylenol Extra Strength) 500 mg PO Q6H [facility] Last Admin: 02/26/20 08:56 Dose: 500 mg Documented by: Hydrocodone Bitart/Acetaminophen ([place] 325-5 Mg) 1 tab PO Q4H PRN PRN Reason: Pain (moderate 4-6) Last Admin: 02/26/20 08:51 Dose: 1 tab Documented by: Hydromorphone HCl (Dilaudid) 1 mg IVPUSH ONETIME ONE Stop: 02/25/20 11:16 Last Admin: 02/25/20 11:24 Dose: 1 mg Documented by: Sodium Chloride (Normal Saline) 1,000 mls @ 999 mls/hr IV ASDIRECTED [facility] Last Admin: 02/25/20 11:28 Dose: 999 mls/hr Documented by: Dextrose/Sodium Chloride (Dextrose 5%-1/2 Ns) 1,000 mls @ 125 mls/hr IV ASDIRECTED [facility] Last Admin: 02/26/20 05:48 Dose: 125 mls/hr Documented by: Ibuprofen (Motrin) 200 mg PO Q6H [facility] Iopamidol (Isovue-370 (76%)) 100 ml IV . DIRECTED ONE Stop: 02/25/20 20:07 Last Admin: 02/25/20 11:45 Dose: 100 ml Documented by: Ondansetron HCl (Zofran) 4 mg IVPUSH ONETIME ONE Stop: 02/25/20 11:16 Last Admin: 02/25/20 11:20 Dose: 4 mg Documented by: - Exam General: Alert, Oriented, Cooperative, No Acute Distress (moves slowly when transferring from chair to bed) Lungs: Clear to Auscultation, Normal Respiratory Effort Cardiovascular: Regular Rate, Regular Rhythm GI/Abdominal Exam: Normal Bowel Sounds, Soft, No Distention, Guarding, Tender (RLQ). No: Rigid, Rebound Skin: Warm, Dry Sepsis Event Note - Evaluation Sepsis Screening Result: No Definite Risk - Focused Exam Vital Signs: Vital Signs Temp Pulse Resp BP Pulse Ox 02/26/20 07:30 98.1 F 62 18 151/77 H 94 L 02/26/20 03:00 97.8 F 62 18 146/69 H 97 Date Exam was Performed: 02/26/20 Time Exam was Performed: 13:42 - Problem List & Annotations (1) Splenic rupture SNOMED Code(s): 946674909 Code(s): S36.09XA - OTHER INJURY OF SPLEEN, INITIAL ENCOUNTER Status: Acute Current Visit: Yes Onset Date: ~02/25/20 Annotation/Comment:: Grade 1, Dr Del Cid was consulted by ER, advised observation. Repeat CT abdomen/pelvis with contrast ordered for today. Hgb dropped this morning to 11.9 and recheck went to 12.8. (2) Normochromic normocytic anemia SNOMED Code(s): 13943245 Code(s): D64.9 - ANEMIA, UNSPECIFIED Status: Acute Current Visit: Yes (3) Elevated CPK Status: Acute Current Visit: Yes Annotation/Comment:: 413 down to 341 at noon, repeat tomorrow. Encourage fluids. (4) Fracture of right distal radius SNOMED Code(s): 354430615 Code(s): S52.501A - UNSP FRACTURE OF THE LOWER END OF RIGHT RADIUS, INIT Status: Acute Current Visit: Yes Onset Date: ~02/25/20 Qualifiers: Encounter type: initial encounter Fracture type: closed (5) Fall SNOMED Code(s): 0447949, 249718290 Code(s): W19.XXXA - UNSPECIFIED FALL, INITIAL ENCOUNTER Status: Acute Current Visit: Yes Onset Date: ~02/25/20 (6) Chest abrasion SNOMED Code(s): 201208388 Code(s): S20.319A - ABRASION OF UNSPECIFIED FRONT WALL OF THORAX, INIT ENCNTR Status: Acute Current Visit: Yes Onset Date: ~02/25/20 (7) Chest wall contusion SNOMED Code(s): 14377026 Code(s): S20.219A - CONTUSION OF UNSPECIFIED FRONT WALL OF THORAX, INIT ENCNTR Status: Acute Current Visit: Yes Onset Date: ~02/25/20 (8) Hx of heart artery stent SNOMED Code(s): 174192761, 889726394 Code(s): Z95.5 - PRESENCE OF CORONARY ANGIOPLASTY IMPLANT AND GRAFT Status: Chronic Current Visit: Yes Onset Date: ~1999 - Problem List Review Problem List Initiated/Reviewed/Updated: Yes - My Orders Last 24 Hours: My Active Orders 02/25/20 14:45 Patient Status [ADT] Routine Antiembolic Devices [RC] .Routine Oxygen Therapy [RC] PRN Up With Assistance [RC] ASDIRECTED Up to Chair [RC] ASDIRECTED Docusate Sodium [Colace] 100 mg PO BID PRN Morphine 2 mg IVPUSH Q2H PRN Ondansetron [Zofran ODT] 4 mg PO Q4H PRN polyethylene glycoL 3350 [MiraLAX] 17 gm PO DAILY PRN Anticoagulation Contraindications VTE [AST] Per Unit Routine Resuscitation Status Routine 02/25/20 14:47 Cardiac Monitoring [RC] CONTINUOUS Antiembolic Hose [OM.PC] Per Unit Routine 02/25/20 16:05 Cooling Warming Measures [RC] ASDIRECTED Ice Pack [Ice Therapy] [OM.PC] Routine 02/25/20 Dinner Regular Diet [DIET] 02/26/20 09:14 Acetaminophen/HYDROcodone [[place] 325-5 MG] 2 tab PO Q4H PRN 02/26/20 11:00 Vital Signs [RC] 08,16,00 02/26/20 13:18 Abdomen Pelvis w Cont [CT] Routine 02/26/20 13:41 Iopamidol [Isovue-370 (76%)] 100 ml IV . DIRECTED ONE 02/27/20 06:00 BASIC METABOLIC PANEL,BMP [CHEM] Routine CBC WITH AUTO DIFF [HEME] Routine CPK [CREATINE KINASE,CK] [CHEM] Routine - Plan Plan:: 1. Grade 1 splenic rupture, Hgb dropped to 11.9 overnight, repeat at noon 12.8, repeat CT abdomen/pelvis with contrast to recheck spleen. 2. Cardiac monitoring, repeat CBC, BMP, CPK in am. 3. Increase dose Hydrocodone/APAP to 2 tab every 4 hours as needed with Morphine as needed moderate & severe pain. Schedule Tylenol discontinued to keep daily dose <3000 mg. 4. Elevated CPK secondary to fall: discontinued IVF since he is eating and drinking well, encourage him to drink 2-3 L today as it is coming down. Repeat tomorrow. 5. Regular diet. 6. DVT prophylaxis: TEDs BLE, pharmacologic contraindicated due to splenic rupture. 7. FULL CODE. 8. Will adjust treatments as needed.
[2020-02-26] MEDS ORDERED: Metoclopramide 10 MG/2 ML SDV IVPUSH PRN (15:09)
[2020-02-26] MEDS: Simethicone 80 MG Tab.Chew PO SCH (20:00)
[2020-02-27] MEDS: Simethicone 80 MG Tab.Chew PO SCH ×3 (03:20→14:48)
[2020-02-27] MEDS: Acetaminophen/HYDROcodone 325-5 MG Tab PO PRN ×3 (03:20→14:48)
[2020-02-27] MEDS: Polyethylene Glycol 3350 Powder 17 GM Packet PO PRN (08:18)
--- NOTE | 2020-02-27 10:27 | CR ---
INDICATION: Fall, pain. RIGHT WRIST: Four images of the right wrist in three projections were obtained 02/25/20 - no comparison. Moderately severe osteoarthritic change with loss of joint space and sclerosis is noted at the 1st metacarpocarpal joint, with moderate degenerative changes at the naviculomultangular joints. Mild degenerative change is also noted at the radiocarpal joints and at the radioulnar interface. Along the medial aspect of the distal radial metaphysis, there is suggestion of a longitudinal fracture site with a transverse fracture site suggested - hairline type through the distal radial metaphysis in good position and alignment. Joint effusion is suggested. IMPRESSION: 1. Fracture in anatomic position and alignment distal radial metaphysis. 2. Osteoarthritis. Report was called to Dr. Buck at 1004 hours. [facility]
[2020-02-27] MEDS ORDERED: Glycerin Adult 2.1 GM Supp RECTAL ONE (11:44)
--- NOTE | 2020-02-28 08:43 | PCM.DCSUM1 ---
Discharge Summary - Hospital Course HPI Initial Comments: Arun was working today on ladder, reached forward and ladder went out from underneath him, fell 6 feet, landed on either ladder or some bricks that were under the ladder, did not lose consciousness, had reached out with his right hand to catch himself. His boss found him about 10 min after injury, went home and daughter brought him to ER. Had trauma CT, found to have grade 1 splenic fracture, right distal radial fracture, chest contusion, chest abrasion, h emoglobin 13.2, INR is within normal range for our lab. History of CAD with stent x 1 placed in 1999, on Atenolol 50 mg, Lisinopril 10 mg, Aspirin 81 mg, Atorvastatin 40 mg, Terazosin 5 mg, Fish oil supplement and was started on new depression medication, but doesn't remember name. His daughter is bringing his medications in from home. He states he is sore, no abdominal pain, fevers, chills, sore throat, cough, shortness of breath, nausea, vomiting, diarrhea. No trouble urinating. Having some numbness in right thumb, splint starting to feel tight. No injuries to his legs. His regular doctor is at [facility] in [facility]. Took all his medications this morning. Diagnosis: Stroke: No - Discharge Data Discharge Date: 02/27/20 Discharge Disposition: Home, Self-Care 01 Condition: Good - Referral to Home Health Primary Care Physician: Kathleen Degroot MD - Discharge Diagnosis/Problem(s) (1) Splenic rupture SNOMED Code(s): 563532670 ICD Code: S36.09XA - OTHER INJURY OF SPLEEN, INITIAL ENCOUNTER Status: Acute Onset Date: ~02/25/20 Problem Details: Grade 1, Dr Del Cid was consulted by ER, advised observation. Repeat CT abdomen/pelvis with contrast showed stable rupture, pain controlled on [place] 10/650 every 4 hours. Hgb dropped this morning to 11.9 and recheck went to 12.8, 11.4 today. Follow up with PCP on . (2) Normochromic normocytic anemia SNOMED Code(s): 48438423 ICD Code: D64.9 - ANEMIA, UNSPECIFIED Status: Acute Problem Details: Secondary to #1, hemoglobin stable at 11.4. (3) Elevated CPK Status: Acute Problem Details: 413 down to 341, today 187. Encourage fluids. (4) Fracture of right distal radius SNOMED Code(s): 698711073 ICD Code: S52.501A - UNSP FRACTURE OF THE LOWER END OF RIGHT RADIUS, INIT Status: Acute Onset Date: ~02/25/20 Problem Details: Follow up with [facility] end of this week/early next week. Qualifiers: Encounter type: initial encounter Fracture type: closed (5) Fall SNOMED Code(s): 7209768, 888102044 ICD Code: W19.XXXA - UNSPECIFIED FALL, INITIAL ENCOUNTER Status: Acute Onset Date: ~02/25/20 (6) Chest abrasion SNOMED Code(s): 991862514 ICD Code: S20.319A - ABRASION OF UNSPECIFIED FRONT WALL OF THORAX, INIT ENCNTR Status: Acute Onset Date: ~02/25/20 (7) Chest wall contusion SNOMED Code(s): 44615709 ICD Code: S20.219A - CONTUSION OF UNSPECIFIED FRONT WALL OF THORAX, INIT ENCNTR Status: Acute Onset Date: ~02/25/20 (8) Hx of heart artery stent SNOMED Code(s): 878497555, 226345107 ICD Code: Z95.5 - PRESENCE OF CORONARY ANGIOPLASTY IMPLANT AND GRAFT Status: Chronic Onset Date: ~1999 - Patient Summary/Data Hospital Course: Arun was admitted for observation for grade 1/2 splenic rupture he sustained after fall of 6 feet from ladder, landing on the bricks/ladder. He also calzada stained right distal radial fracture, chest contusion/abrasion, elevated CPK. He was started on Tylenol, [place] 1 tab every 4 hours and Morphine 2 mg q2h for pain, he was taking morphine and [place] every 2-4 hours so [place] was increased to 2 tab q4h, last Morphine dose was Thursday at 1500. He had sharp pain Thursday night, that he was seen by Dr Buck, had EKG, troponin negative, CPK was elevated at 413 and started on IV fluids, hemoglobin had dropped from 13.2 in ER to 12.4, Sun am it was 11.9, then 12.[address] abdomen/pelvis with contrast showed splenic rupture was unchanged from previous day; it did show ileus, with distension of stomach with gas/fluid/food. He was switched from regular diet to clears, IVF had been discontinued. Given Reglan 10 mg IV and MiraLax, Colace, he had a large bowel movement later that evening, sharp pain resolved. His diet was advanced next morning and he tolerated lunch well. No further distension, continued to pass gas but felt like he had to have a bowel movement but like it was hung up "down there", so glycerin suppository was given. Patient walked in the halls but no bowel movement prior to discharge but passing gas; he stated that he doesn't go regular at home either, and usually only at his house. His CPK trended down with IVF and then clear liquids, was 187 on day of discharge. His right distal radial fracture was splinted in ER, had some numbness & tingling in his thumb and fingers so splint was adjusted during hospitalization, will follow up with PCP to get set up with [facility] for the end of the week to get casted. - Patient Instructions Diet: Regular Diet as Tolerated Activity: As Tolerated, Cough & Deep Breathe, No Lifting Over 10 Pounds, No St renuous Activities, Rest and Relax Today Driving: Do Not Drive Showering/Bathing: May Shower Notify Provider of: Fever, Increased Pain, Nausea and/or Vomiting Other/Special Instructions: Follow up at [facility] on for follow up of Splenic rupture, grade 1 and right wrist fracture. - Discharge Plan *PRESCRIPTION DRUG MONITORING PROGRAM REVIEWED*: Yes *COPY OF PRESCRIPTION DRUG MONITORING REPORT IN PATIENT [place]ONAK: Not Applicable Prescriptions/Med Rec: Acetaminophen/HYDROcodone [[place] 325-5 MG] 2 tab PO Q4H PRN 3 Days #36 tablet PRN Reason: Pain (Moderate 4-6) Home Medications: Home Meds Amitriptyline [Elavil] 50 mg PO BEDTIME 02/25/20 [History] Finasteride [Proscar] 5 mg PO BEDTIME 02/25/20 [History] Nitroglycerin [Nitrostat] 0.4 mg SL Q5M PRN 02/25/20 [History] Terazosin [Hytrin] 10 mg PO BEDTIME 02/25/20 [History] atenoloL [Atenolol] 50 mg PO DAILY 02/25/20 [History] atorvaSTATin [Lipitor] 40 mg PO BEDTIME 02/25/20 [History] Acetaminophen/HYDROcodone [[place] 325-5 MG] 2 tab PO Q4H PRN 3 Days #36 tablet 02/27/20 [Rx] Docusate Sodium [Colace] 100 mg PO BID PRN cap 02/27/20 [Rx] Omeprazole 20 mg PO DAILY PRN 02/27/20 [History] Simethicone 80 mg PO QIDPCANDBED tab.chew 02/27/20 [Rx] polyethylene glycoL 3350 [MiraLAX] 17 gm PO DAILY PRN packet 02/27/20 [Rx] Oxygen Therapy Mode: Room Air Patient Handouts: Splenic Injury, Fall Prevention in Hospitals, Adult, Ambulatory Cardiac Monitoring, Venous Thromboembolism Prevention Forms: ED Department Discharge Referrals: Kathleen Degroot MD [Primary Care Provider] - - Discharge Summary/Plan Comment DC Time >30 min.: No - General Info Date of Service: 02/27/20 Subjective Update: He is feeling better today, had large explosive bowel movement last night, sharp pain went away after that, passing gas and belching. Diet advanced and tolerated well today. Hemoglobin stable. Functional Status: Reports: Pain Controlled - Patient Data Vitals - Most Recent: Last Vital Signs Temp 97.7 F 02/27/20 16:00 Pulse 68 02/27/20 16:00 Resp 18 02/27/20 16:00 BP 132/71 02/27/20 16:00 Pulse Ox 95 02/27/20 16:00 Weight - Most Recent: 175 lb Lab Results - Last 24 hrs: Laboratory Results - last 24 hr 02/27/20 Range/Units 09:00 Urine Color Yellow (YELLOW) Urine Appearance Clear (CLEAR) Urine pH 5.0 (5.0-6.5) Ur Specific [place] 1.010 (1.010-1.025) Urine Protein Negative (NEGATIVE) mg/dL Urine Glucose (UA) 100 H (NORMAL) mg/dL Urine Ketones Negative (NEGATIVE) mg/dL Urine Occult Blood Negative (NEGATIVE) Urine Nitrite Negative (NEGATIVE) Urine Bilirubin Negative (NEGATIVE) Urine Urobilinogen Normal (NEGATIVE) mg/dL Ur Leukocyte Esterase Negative (NEGATIVE) Urine RBC 0-5 (0-5) Urine WBC 0-5 (0-5) Ur Squamous Epith Cells Rare (NS,R,O) Urine Bacteria Rare H (NS) Med Orders - Current: Current Medications Discontinued Medications Acetaminophen (Tylenol Extra Strength) 500 mg PO Q6H [facility] Last Admin: 02/26/20 08:56 Dose: 500 mg Documented by: Hydrocodone Bitart/Acetaminophen ([place] 325-5 Mg) 1 tab PO Q4H PRN PRN Reason: Pain (moderate 4-6) Last Admin: 02/26/20 08:51 Dose: 1 tab Documented by: Hydrocodone Bitart/Acetaminophen ([place] 325-5 Mg) 2 tab PO Q4H PRN PRN Reason: Pain (moderate 4-6) Last Admin: 02/27/20 14:48 Dose: 2 tab Documented by: Docusate Sodium (Colace) 100 mg PO BID PRN PRN Reason: Constipation Last Admin: 02/26/20 20:23 Dose: 100 mg Documented by: Glycerin (Sani-Supp Adult) 1 supp RECTAL ONETIME ONE Stop: 02/27/20 11:45 Last Admin: 02/27/20 12:37 Dose: 1 supp Documented by: Hydromorphone HCl (Dilaudid) 1 mg IVPUSH ONETIME ONE Stop: 02/25/20 11:16 Last Admin: 02/25/20 11:24 Dose: 1 mg Documented by: Sodium Chloride (Normal Saline) 1,000 mls @ 999 mls/hr IV ASDIRECTED [facility] Last Admin: 02/25/20 11:28 Dose: 999 mls/hr Documented by: Dextrose/Sodium Chloride (Dextrose 5%-1/2 Ns) 1,000 mls @ 125 mls/hr IV ASDIRECTED [facility] Last Admin: 02/26/20 05:48 Dose: 125 mls/hr Documented by: Ibuprofen (Motrin) 200 mg PO Q6H [facility] Iopamidol (Isovue-370 (76%)) 100 ml IV . DIRECTED ONE Stop: 02/25/20 20:07 Last Admin: 02/25/20 11:45 Dose: 100 ml Documented by: Iopamidol (Isovue-370 (76%)) 100 ml IV . DIRECTED ONE Stop: 02/26/20 13:42 Last Admin: 02/26/20 13:51 Dose: 90 ml Documented by: Metoclopramide HCl (Reglan) 10 mg IVPUSH Q6H PRN PRN Reason: gastroparesis Last Admin: 02/26/20 15:21 Dose: 10 mg Documented by: Morphine Sulfate (Morphine) 2 mg IVPUSH Q2H PRN PRN Reason: Pain (severe 7-10) Last Admin: 02/26/20 15:10 Dose: 2 mg Documented by: Ondansetron HCl (Zofran) 4 mg IVPUSH ONETIME ONE Stop: 02/25/20 11:16 Last Admin: 02/25/20 11:20 Dose: 4 mg Documented by: Ondansetron HCl (Zofran Odt) 4 mg PO Q4H PRN PRN Reason: nausea, able to take PO Polyethylene Glycol (Miralax) 17 gm PO DAILY PRN PRN Reason: Constipation Last Admin: 02/27/20 08:18 Dose: 17 gm Documented by: Simethicone (Simethicone) 80 mg PO QIDPCANDBED BULL Last Admin: 02/27/20 14:48 Dose: 80 mg Documented by: Sodium Chloride (Saline Flush) 10 ml FLUSH ASDIRECTED PRN PRN Reason: Keep Vein Open Last Admin: 02/26/20 15:21 Dose: 10 ml Documented by: - Exam General: Reports: Alert, Oriented, Cooperative, No Acute Distress Lungs: Reports: Clear to Auscultation, Normal Respiratory Effort, Other (sore with palpation) Cardiovascular: Reports: Regular Rate, Regular Rhythm GI/Abdominal Exam: Normal Bowel Sounds, Soft, Non-Tender, No Distention Extremities: No Pedal Edema *Q Meaningful Use (DIS) - VTE *Q VTE Pharmacological Contraindications *Q: Active Hemorrhage VTE Anticoagulation Contraindications: Medical/Procedure Contrai
== END 2020-02-27 16:55 | disposition home or self-care (01) ==
LOC: FB.ED 10:38 → FB.MS 13:59
PROVIDERS: ADMIT Emergency Medicine; ATTEND Family Medicine
DX: S36.09XA Other injury of spleen, initial encounter (principal); S52.501A Unspecified fracture of the lower end of right radius, initial encounter for closed fracture; R31.29 Other microscopic hematuria; S20.211A Contusion of right front wall of thorax, initial encounter; D64.9 Anemia, unspecified; I25.10 Atherosclerotic heart disease of native coronary artery without angina pectoris; R79.1 Abnormal coagulation profile; R74.8 Abnormal levels of other serum enzymes; E78.00 Pure hypercholesterolemia, unspecified; I10 Essential (primary) hypertension; F32.9 Major depressive disorder, single episode, unspecified; Z79.899 Other long term (current) drug therapy; Z95.5 Presence of coronary angioplasty implant and graft; Z87.891 Personal history of nicotine dependence; W11.XXXA Fall on and from ladder, initial encounter; Y92.510 Bank as the place of occurrence of the external cause; Y93.89 Activity, other specified; Y99.0 Civilian activity done for income or pay
CPT/HCPCS: 29125; 36415; 71260; 73110; 74177; 80048; 80053; 81001; 82550; 84484; 85014; 85018; 85025; 85027; 85610; 93005; 96374; 96375; 99217; 99218; 99225; 99285; A9270; G0378; J1170; J2270; J2405; J2765; J7030; J7042; Q9967